=== PATIENT | female | born 1995 | race Hispanic/Latino ===

== ENCOUNTER 2018-07-02 06:13 | Day surgery (SDC) | payer BC ==
[2018-06-10 15:07] VITALS: BMI 34.0
[2018-07-02 06:52] VITALS: RESP 18; O2SAT 100
[2018-07-02] MEDS ORDERED: Midazolam 2 MG/2 ML VIAL ONE ×2 (07:25→08:11)
[2018-07-02] MEDS ORDERED: Lidocaine 1% 5ml Abboject ONE (07:25)
[2018-07-02] MEDS ORDERED: Propofol 10 mg/ml Inj (20 ML) ONE ×4 (07:25→09:28)
[2018-07-02] MEDS ORDERED: Bupivacaine 0.25% Inj(30mL) IJ ONE (07:27)
[2018-07-02] MEDS ORDERED: Lidocaine 1% Inj (20ml) IJ ONE ×3 (07:27→08:10)
[2018-07-02] MEDS ORDERED: MethylPREDNISolone Depo 40 mg/ml Inj ONE (07:28)
--- NOTE | 2018-07-02 07:28 | CP.SDSHP ---
<UdayHailey fitzgerald - Last Filed: 07/02/18 07:27> Same Day Surgery H & P - History Proposed Procedure: right foot tailor's bunion correction with 5th metatarsal osteotomy Pre-Op Diagnosis: right foot Tailor's bunion - Previous Medical/Surgical History Pain: 4.Moderate Pain Comments: denies any past medical history Previous Surgical History: denies - Allergies Allergies: Allergies No Known Allergies Allergy (Verified 06/10/18 15:07) - Current Medications Current Medications: none - Physical Exam General Appearance: well nourished, AAOx3, NAD Vital Signs: Vital Signs 07/02/18 07/02/18 06:44 06:51 Temperature 98.9 F Pulse Rate 109 H 109 H Respiratory 18 Rate Blood Pressure 144/83 O2 Sat by Pulse 100 Oximetry Mental Status: Alert & Oriented x3 Neuro: WNL Heart: WNL Lungs: WNL GI: WNL Social History: Alcohol - {Optional Preform as Required} Breast: WNL Abdomen: WNL Rectal: WNL Integument: Other (mild erythema 5th metatarsal head right foot) DIRECTOR OF OPERATIONS: WNL : WNL Ortho: Other (bony prominence 5th metatarsal head right foot, mild splay foot noted right foot) ENT: WNL Short Stay Discharge - Short Stay Discharge Admitting Diagnosis/Reason for Visit: M21.611 Disposition: HOME/ ROUTINE Additional Instructions (Diet, Activity): -Patient in good/stable condition for discharge home -Pt to resume medications per medical reconciliation -Resume regular diet -Please keep dressing clean, dry, & intact to surgical site -Use plastic bag over bandage for showering -Wear post op shoe at all times when ambulating -Call clinic if you see signs of infection (redness, swelling, malodor) -Please make an appointment to see Dr. Engle in office/clinic within 1 week for post-op check <Jeanine Orozco - Last Filed: 07/02/18 08:45> Same Day Surgery H & P - Allergies Allergies: Allergies No Known Allergies Allergy (Verified 06/10/18 15:07) - Physical Exam Vital Signs: Vital Signs 07/02/18 07/02/18 06:44 06:51 Temperature 98.9 F Pulse Rate 109 H 109 H Respiratory 18 Rate Blood Pressure 144/83 O2 Sat by Pulse 100 Oximetry - Impression Impression: Pt was seen and examined in [facility]. Pt NPO status was confirmed. All pre-op testing and clearance in chart. Pt has exhausted all conservative treatment at this time and is opting for surgical intervention. Pt was explained procedure and post-operative course. All pt's questions were answered to satisfaction. No guarantees were made. Pt understands all risks, benefits and complications of procedure. Pt will follow-up with Dr. Engle within 1 week of surgery Pt. Evaluated Today:Candidate for Anesthesia & Procedure: Yes - Date & Time Date: 07/02/18 Time: 08:43 Short Stay Discharge - Short Stay Discharge Progress Note/Discharge Note with Instructions: - Patient evaluated bedside in recovery - After surgical procedure patient in NAD - (+) Void, (+) Appetite - Capillary refill time <3s and NVS intact. - Patient denies complaints at this time. - Post operative instructions and plan of care explained to patient at length. - Patient. acknowledges verbal understanding. - Patient stable for DC per podiatric surgery
[2018-07-02] MEDS ORDERED: Bupivacaine 0.5% Inj(30mL) ONE (07:29)
--- NOTE | 2018-07-02 07:29 | CP.PCM.PN ---
<Jeanine Orozco - Last Filed: 07/02/18 08:42> Objective - Vital Signs/Intake and Output Vital Signs (last 24 hours): Temp Pulse Resp BP Pulse Ox 98.9 F 109 H 18 144/83 100 07/02/18 06:51 07/02/18 06:51 07/02/18 06:51 07/02/18 06:51 07/02/18 06:51 Intake and Output: 07/02/18 07/02/18 06:59 18:59 Intake Total 500 Balance 500 Assessment and Plan - Assessment and Plan (Free Text) Plan: Pt was seen and examined in [facility] Pt NPO status was confirmed All pre-op testing and clearance in chart Pt has exhausted all conservative treatment at this time and is opting for surgical intervention Pt was explained procedure and post-operative course All pt's questions were answered to satisfaction No guarantees were made Pt understands all risks, benefits and complications of procedure Pt will follow-up with Dr. Engle within 1 week of surgery <Hailey Mosley - Last Filed: 07/02/18 10:01> Subjective - Date & Time of Evaluation Date of Evaluation: 07/02/18 Time of Evaluation: 07:29 - Subjective Subjective: 22 y/o female seen at bedside in [facility] this morning prior to surgery for correction of painful right foot Tailor's bunion. Pt relays that she has had pain for several years which has progressively worsend. States it is worse when wearing shoes as it compresses the bone. Denies any tingling, numbness or burning in the lower extremities. Last had something to eat or drink at 8pm last night. Denies F/C/N/V/CP/SOB PMH: denies PSH: denies SocHx: social EtOH; denies cigarette or illicit drug use All: NKDA FamHX: family hx of hypertension Objective - Vital Signs/Intake and Output Vital Signs (last 24 hours): Temp Pulse Resp BP Pulse Ox 98.9 F 109 H 18 144/83 100 07/02/18 06:51 07/02/18 06:51 07/02/18 06:51 07/02/18 06:51 07/02/18 06:51 - Medications Medications: Current Medications Bupivacaine HCl (Marcaine 0.25%) 20 ml IJ ONCE ONE Stop: 07/02/18 07:28 Lidocaine HCl (Lidocaine 1% (20ml)) 20 ml IJ ONCE ONE Stop: 07/02/18 07:28 - Constitutional Appears: Well, Non-toxic, No Acute Distress - Extremities Exam Additional comments: Right lower extremity exam: Vasc: DP/Pt pulses palpable 2/4. Temperature gradient warm to cool. CFT < 3 sec to all digits. NO pedal edema noted Derm: mild erythema noted to bony prominence at 5th metatarsal head. No open lesions, no ecchymosis Neuro: protective sensation grossly intact Ortho: Mild splay foot deformity noted. Tenderness to palpation of 5th metatarsal head with pressure. - Neurological Exam Neurological Exam: Alert, Awake, Oriented x3 - Psychiatric Exam Psychiatric exam: Normal Affect, Normal Mood Assessment and Plan - Assessment and Plan (Free Text) Assessment: 22 y/o female with no PMHx to go to surgery with Dr. Engle for outpatient surgical treatment of right foot Tailor's bunion with 5th metatarsal osteotomy and internal fixation
[2018-07-02] MEDS ORDERED: Lactated Ringer's 1,000 ML IV ONE (07:45)
[2018-07-02] MEDS ORDERED: Bupivacaine 0.5% Inj(30mL) IJ ONE (09:20)
--- NOTE | 2018-07-02 09:58 | PCM.SURG1 ---
Surgeon's Initial Post Op Note - Surgeon's Notes Surgeon: Dr. Engle Coremaker Apprentice: Dr. Hailey Mosley PGY-2 Anesthesia Administered By: Dr. Melendrez Pre-Operative Diagnosis: right foot 5th metatarsal Tailor's bunion deformity Operative Findings: see dictation. I: 20 cc 1% Lidocaine plain, 10cc 0.5% marcaine plain. M: 1cc MTF DBM bone putty, Osteomed 2.0 cannulated screws x 14, 16, 0.045 K-wire, 3-0 Vicryl, 4-0 Vicryl, 4-0 Monocryl, 5-0 Nylon Post-Operative Diagnosis: same Operation Performed: right foot correction of Tailor's bunion with 5th metatarsal osteotomy with internal fixation Specimen/Specimens Removed: none Estimated Blood Loss: EBL {In ML}: 5 Blood Products Given: N/A Drains Used: No Drains Post-Op Condition: Good Date of Surgery/Procedure: 07/02/18 Time of Surgery/Procedure: 09:59
[2018-07-02] MEDS ORDERED: Lactated Ringer's 1,000 ML IV SCH (10:00)
[2018-07-02] MEDS ORDERED: STERILE IRRIGATING SOLUTION 15 ML IR ONE ×2 (10:05→10:11)
[2018-07-02 11:16] VITALS: BP 119/66; PULSE 54; TEMP 98.1
--- NOTE | 2018-07-02 18:58 | RAD ---
Date of service: 07/02/2018 PROCEDURE: Right Foot Radiographs. HISTORY: s/p right 5th met surgery COMPARISON: None. TECHNIQUE: 3 views obtained. FINDINGS: BONES: Status post osteotomy distal 5th metatarsal diaphysis. Orthopedic fixation noted. No acute fracture. JOINTS: Normal. SOFT TISSUES: Normal. OTHER FINDINGS: None. IMPRESSION: Osteotomy distal 5th metatarsal diaphysis.
--- NOTE | 2018-07-04 18:42 | PCM.OP ---
Operative Report - Operative Report Date of Surgery/Procedure: 07/02/18 Time of Surgery/Procedure: 07:45 Surgeon: Dr. Engle Claim Review Medical Director: Hailey Mosley PGY-2 Anesthesia/Sedation: IV sedation with local Pre-Operative Diagnosis: right foot Tailor's bunion deformity of 5th metatarsal with splay foot Post-Operative Diagnosis: same Indication for Surgery: The patient is a 22 year-old female with the above diagnoses. The patient has exhausted conservative treatment at this time and now requests surgical intervention. The patient signed the consent after careful explanation of risks, benefits, complications and alternatives for surgical procedure. No guarantees were given nor implied. 2 grams of Ancef IV were given to the patient half an hour prior to the procedure. NPO status was confirmed prior to taking patient to the operating room. Operative Findings: The patient was brought in to the operating room and placed on the operating room table in the supine position. A well-padded pneumatic ankle tourniquet was placed to the patient's right ankle in the supramalleolar position. After induction of IV sedation, the patient received a total of 10 mL of 1% lidocaine plain in local block fashion to the right foot. Once local anesthesia was achieved, the right foot was then prepped and draped in usual sterile manner. An esmarch was utilized to exsanguinate the patient's right foot. The pneumatic ankle tourniquet was then inflated to 250 mmHg and the procedure began. Procedure/Operation Description: Procedure #1: Right foot 5th metatarsal osteotomy with internal fixation Attention was directed to the dorsal aspect of the right foot 5th metatarsal head which was noted to be prominent at the lateral aspect of the forefoot. Utilizing a #15 blade, an approximately 4 cm linear longitudinal incision was created over the dorsal aspect of the 5th metatarsal. The incision was deepened through subcutaneous tissues with care being taken to identify and retract all vital neurovascular structures. All bleeders were cauterized and ligated as necessary. At this time, a linear periosteal and capsular incision was made overlying the fifth metatarsal of the right foot. The periosteal and capsular structures were then carefully dissected free of their osseous attachments and reflected medially and laterally thus exposing the head and shaft of the fifth metatarsal. Next utilizing a sagittal bone saw, the prominent lateral prominence of the 5th metatarsal head was resected and passed from the operative field. Next, using an oscillating saw, an oblique osteotomy was made through and through in the neck of the 5th metatarsal from distal lateral to proximal medial. Upon completion of the osteotomy, the capital fragment was distracted and shifted medially into a more corrected position and held in place utilizing a 0.045 inch K-wire. Next, an Osteomed 2.4 x 14 mm cannulated screw was inserted across the osteotomy site following standard AO technique. At this time the dorsal cortex was noted to exhibit poor bone quality surrounding the screw site and the screw broke through the distal aspect of the osteotomy, burying its head into the proximal portion of the osteotomy. The screwdriver was used to attempt to remove the screw, however, the screw continued to bury deeper into the proximal 5th metatarsal, and was unable to be removed without further excessive dissection, which may have compromised the surrounding muscle belly. Next, a K-wire from the Osteomed tray was inserted across the osteotomy site from proximal lateral to distal medial. A second 2.4 cannulated screw measuring 16mm was inserted across the osteotomy site with adequate compression noted. Additional rotation was still noted to be present at the osteotomy site and it was deemed necessary to insert additional fixation to ensure a stable osteotomy construct. A 0.045 inch K-wire was inserted from distal medial to proximal lateral across the osteotomy site. The K-wire exited through the dorsum of the foot and was bent and cut using a wire frame maker, with a pin cap placed atop. Attention was then directed to the remaining medial and lateral bone shelves which was resected utilizing the oscillating bone saw. All rough edges were smoothed down with a hand rasp. The wound was then flushed with copious amounts of sterile normal saline The periosteal and capsular structures were reapproximated and coapted utilizing #3-0 Vicryl. The subcuticular tissues were then reapproximated and coapted utilizing #4-0 Vicryl. The skin was then reapproximated and coapted utilizing #4-0 Monocryl in a running suture technique. Additional 5-0 Nylon skin sutures were added for appropriate skin closure. Postoperative bandage consisted of Steri-Strips, xeroform, 4x4 gauze, [place] and an CLIFF bandage. The pneumatic ankle tourniquet was then deflated and a prompt hyperemic response was noted to all the digits of the right foot. Estimated Blood Loss: 5 cc Complications: See body of dictation Discharge & Condition: The patient tolerated the anesthesia and procedure well and was escorted to the recovery room with vital signs stable and neurovascular status intact to the right foot. This patient will follow up with Dr. Engle in his office on an outpatient basis. The patient may be partial weight bearing to the right heel with use of a CAM walking boot.
== END 2018-07-02 12:00 | disposition home or self-care (01) ==
LOC: H.OPSURG 06:13
PROVIDERS: ATTEND Podiatrist Foot & Ankle Surgery
DX: M21.611 Bunion of right foot (principal); M20.11 Hallux valgus (acquired), right foot; M21.621 Bunionette of right foot
CPT/HCPCS: 28308; 73630; 97161; C1713; G8978; G8979; G8980; J0690; J1030; J1885; J2250; J2704; J2765; J3010; J7030; J7120